=== PATIENT | female | born 1950 | race Caucasian/White ===

== ENCOUNTER 2017-09-18 12:42 | Day surgery (SDC) | payer MEDICARE, OTHER ==
[~2017-09-18] VITALS: Ht 160 cm; Wt 67.0 kg
[~2017-09-18 12:42] MED LIST: AMIT10; CHOL10002; FISH OIL 1,0001 EAC1; Omeprazole20 M1; TOCO1000
== END 2017-09-18 14:57 | disposition home or self-care (01) ==
LOC: ORSCSDS 12:42
PROVIDERS: Internal Medicine Gastroenterology
PROC: 0DBM8ZX Excision of Descending Colon, Via Natural or Artificial Opening Endoscopic, Diagnostic (ICD-10-PCS; principal; 2017-09-18 14:15)
PROC: 0DBN8ZX Excision of Sigmoid Colon, Via Natural or Artificial Opening Endoscopic, Diagnostic (ICD-10-PCS; principal; 2017-09-18 14:15)
PROC: 0DJ08ZZ Inspection of Upper Intestinal Tract, Via Natural or Artificial Opening Endoscopic (ICD-10-PCS; 2017-09-18 14:15)
DX: K21.9 Gastro-esophageal reflux disease without esophagitis (principal); D12.4 Benign neoplasm of descending colon; D12.5 Benign neoplasm of sigmoid colon; K64.8 Other hemorrhoids; K92.1 Melena; E78.5 Hyperlipidemia, unspecified; Z83.71 Family history of colonic polyps; K29.80 Duodenitis without bleeding; Z79.899 Other long term (current) drug therapy
CPT/HCPCS: 88305; J7120

== ENCOUNTER → 2021-02-15 | Outpatient (CLI) | payer MEDICARE, OTHER | LOC: LAB 12:33 → LAB SHORT 12:33 → LAB FUT 02-08 11:55 | DX: R73.01 Impaired fasting glucose (principal); Z88.0 Allergy status to penicillin | CPT/HCPCS: 82043 ==

== ENCOUNTER 2021-06-22 11:48 | Day surgery (SDC) | payer MEDICARE, OTHER ==
[~2021-06-22] VITALS: Ht 160 cm; Wt 63.7 kg
[~2021-06-22 11:48] MED LIST changes: +Amitriptyline H10 MG PO
--- NOTE | 2021-06-22 12:11 | NUR ---
06/22/21 1211 Klarissa Hairston CALL LIGHT WITHIN REACH. ANDREI EDMONDS IN ROOM TO ASSIST WITH PRE-OP. TETRACAINE EYE DROPS IN ON RIGHT EYE AT 1204 AND PLEDGETT AT 1206
== END 2021-06-22 13:58 | disposition home or self-care (01) ==
LOC: ORSCSDS 11:48
PROVIDERS: Ophthalmology
PROC: 08RJ3JZ Replacement of Right Lens with Synthetic Substitute, Percutaneous Approach (ICD-10-PCS; principal; 2021-06-22 13:00)
DX: H25.13 Age-related nuclear cataract, bilateral (principal); H35.3130 Nonexudative age-related macular degeneration, bilateral, stage unspecified; I49.9 Cardiac arrhythmia, unspecified; Z79.899 Other long term (current) drug therapy
CPT/HCPCS: J2001; J2250; J3010; J3301; J7040; V2632

== ENCOUNTER 2021-07-13 11:07 | Day surgery (SDC) | payer MEDICARE, OTHER ==
[~2021-07-13] VITALS: Ht 160 cm; Wt 62.7 kg
--- NOTE | 2021-07-13 11:30 | NUR ---
07/13/21 1130 Klarissa Hairston CALL LIGHT WITHIN REACH. TETRACAINE AT 1124 AND PLEDGETT AT 1125
== END 2021-07-13 12:54 | disposition home or self-care (01) ==
LOC: ORSCSDS 11:07
PROVIDERS: Ophthalmology
PROC: 08RK3JZ Replacement of Left Lens with Synthetic Substitute, Percutaneous Approach (ICD-10-PCS; principal; 2021-07-13 12:30)
DX: H25.12 Age-related nuclear cataract, left eye (principal); K21.9 Gastro-esophageal reflux disease without esophagitis; Z79.899 Other long term (current) drug therapy
CPT/HCPCS: J2001; J2250; J3010; J3301; J7040; V2632

== ENCOUNTER 2024-12-30 14:27 | Emergency (ER) | payer MEDICARE, OTHER ==
[~2024-12-30] VITALS: Ht 160 cm; Wt 54.0 kg
[2024-12-30 14:31] VITALS: BP 135/72
[2024-12-30] MEDS ORDERED: HYDROcodone 5-APAP 325 TAB PO ONE (14:35)
[2024-12-30] MEDS ORDERED: CEPH500 PO (16:45)
== END 2024-12-30 16:48 | disposition home or self-care (01) ==
LOC: ER 14:27
DX: S61.411A Laceration without foreign body of right hand, initial encounter (principal); W23.0XXA Caught, crushed, jammed, or pinched between moving objects, initial encounter
CPT/HCPCS: 12034; 73120; 90471; 90702; 90715; 99283-25; A9270